=== PATIENT | male | born 1970 | race African-American/Black ===

== ENCOUNTER 2017-05-23 14:06 | Emergency (ER) | payer OTHER ==
[~2017-05-23] VITALS: Ht 180.3 cm; Wt 85.0 kg
[2017-05-23 14:28] VITALS: BP 113/74; PULSE 79; RESP 16; TEMP 97.9; O2SAT 99
[2017-05-23] MEDS ORDERED: IBUP1TAB7 PO (15:57)
[2017-05-23] MEDS ORDERED: BACT800T5 PO (15:57)
[2017-05-23] MEDS ORDERED: LIDOCAINE HCL 1% PF 30 ML VIAL INFIL ONE (16:00)
[2017-05-23] MEDS ORDERED: IBUPROFEN 800 MG TAB PO ONE (16:00)
--- NOTE | 2017-05-23 16:02 | PD ---
HPI Chief Complaint: Laceration/Skin Injury Time Seen by Provider: 15:47 Travel History International Travel<30 days: No Contact w/Intl Traveler<30days: No Traveled to known affect area: No History of Present Illness HPI 46-year-old male presents to the emergency department with complaint of a large laceration to his right lower leg that occurred today. He said he lost his footing and he fell and hit his leg on a riser. He denies hitting his head or loss of consciousness. Denies any pain or back pain. Is ambulatory on the affected extremity. Denies paresthesias, loss of sensation, decreased range of motion, decreased strength to the affected extremity. Denies anticoagulant therapy. Tetanus is up-to-date. Rates pain 5/10. Has not taken any medication to alleviate his symptoms. Has applied pressure to control bleeding. Has a primary care provider but cannot remember her name. No known allergies. History of hypertension. Has no other medical complaints. No other modifying factors or associated signs and symptoms. PFSH Past Medical History Medical History: Denies Significant Hx Cardiovascular Problems: Yes (BP) Past Surgical History Other Surgery: Yes (BOWEL OBSTRUCTION A YEAR AGO , WENT IN TO RESECT IT ) Social History Alcohol Use: No Tobacco Use: No Substance Use: No Allergies-Medications (Allergen,Severity, Reaction): Coded Allergies: No Known Allergies (Unverified , 05/23/17) Reported Meds & Prescriptions Reported Meds & Active Scripts Active Bactrim DS (Sulfamethoxazole-Trimethoprim) 800-160 Mg Tab 1 Tab PO BID 7 Days Ibuprofen 800 Mg Tab 800 Mg PO Q6HR PRN Review of Systems Except as stated in HPI: all other systems reviewed are Neg Physical Exam Narrative GENERAL: Well-nourished, well-developed black male patient, in no acute distress SKIN: Warm and dry. Right cruz with approximately 16 cm V-shaped laceration; superficial layer of skin is avulsed; the laceration is not deep; bleeding controlled. Right lower extremity is supple and nontender with 2+ pedal pulse and sensory intact without erythema or edema. HEAD: Atraumatic. Normocephalic. EYES: Pupils equal and round. No scleral icterus. No injection or drainage. ENT: Mucosa pink and moist. Airway patent. NECK: Trachea midline. CARDIOVASCULAR: Regular rate. RESPIRATORY: No accessory muscle use. GASTROINTESTINAL: Flat. MUSCULOSKELETAL: No obvious deformities. No clubbing. No cyanosis. No edema. NEUROLOGICAL: Awake and alert. Oriented 3. No obvious cranial nerve deficits. Motor grossly within normal limits. Normal speech. PSYCHIATRIC: Appropriate mood and affect; insight and judgment normal. Data Data Last Documented VS Vital Signs Date Time Temp Pulse Resp B/P (MAP) Pulse Ox O2 Delivery O2 Flow Rate FiO2 05/23/17 14:28 97.9 79 16 113/74 (87) 99 Orders Orders Lidocaine Pf 1% Inj (Xylocaine-Mpf 1% In (05/23/17 16:00) Ibuprofen (Motrin) (05/23/17 16:00) MDM Medical Decision Making Medical Screen Exam Complete: Yes Emergency Medical Condition: Yes Medical Record Reviewed: Yes Differential Diagnosis Laceration, skin tear, skin avulsion Narrative Course 46-year-old male with laceration to his right cruz. Up-to-date on tetanus. See my procedure note for laceration repair. Ibuprofen administered in the ER. Ibuprofen and Bactrim prescribed for home. Instructed patient to return to emergency department or follow-up with primary care provider in 14 days for staple removal. Instructed patient to follow up with primary care provider. Patient verbalizes understanding and agreement with treatment plan. Patient is medically cleared and stable for discharge. Discussed reasons to return to the emergency department. Patient agrees with treatment plan. The patients vital signs are stable and the patient is stable for outpatient follow-up and treatment. Patient discharged home, stable and in no acute distress. Procedures Procedure Narrative LACERATION LOCATION: Right cruz LENGTH: 16 cm V-shaped; avulsed the superficial layer of the skin NUMBER OF STITCHES/REUBEN: 23 reuben REPAIR: The area of the laceration was prepped with Betadine and sterilely draped. The laceration was infiltrated with 1% lidocaine. The wound was copiously irrigated and explored without evidence of foreign body, tendon injury or neurovascular injury. The wound was closed using reuben. This was a single layer repair. A sterile dressing was applied. The patient was advised to keep the dressing clean and dry. Patient tolerated the procedure well. Diagnosis Primary Impression: Laceration of right lower leg Qualified Codes: S81.811A - Laceration without foreign body, right lower leg, initial encounter Referrals: Primary Care Physician Patient Instructions: General Instructions, Laceration (ED), Staple Care (ED) Additional Instructions: Keep area clean and dry Limit right lower leg activity to decrease risk of staple coming undone Ibuprofen or Tylenol as directed and as needed for pain and inflammation Ice pack to area as needed to decrease pain Return to the emergency department in 14 days for staple removal Follow up with primary care provider within 2-4 days Return to the emergency department immediately with worsening of symptoms, particularly if reddened streaks up or down the affected extremity from the suture site, fever, numbness/tingling in the affected extremity, loss of sensation in the affected extremity, severe swelling of the affected Med/Other Pt SpecificInfo: Prescription(s) given Scripts Sulfamethoxazole-Trimethoprim (Bactrim DS) 800-160 Mg Tab 1 TAB PO BID for Infection for 7 Days, #14 TAB 0 Refills Prov: Marnie Ly 05/23/17 Ibuprofen (Ibuprofen) 800 Mg Tab 800 MG PO Q6HR Y for PAIN, #30 TAB 0 Refills Prov: Marnie Ly 05/23/17 Disposition: 01 DISCHARGE HOME Condition: Stable Marnie Ly May 23, 2017 16:02
== END 2017-05-23 17:03 | disposition home or self-care (01) ==
LOC: NEPD 14:06
DX: S81.811A Laceration without foreign body, right lower leg, initial encounter (principal); W01.198A Fall on same level from slipping, tripping and stumbling with subsequent striking against other object, initial encounter; I10 Essential (primary) hypertension
CPT/HCPCS: 12005